=== PATIENT | female | born 1985 | race Caucasian/White ===

== ENCOUNTER 2019-01-03 06:47 | Emergency (ER) | payer OTHER ==
[2019-01-03] MEDS ORDERED: NORMAL SALINE 1000 ML 1,000 ML IV ONE (07:34)
--- NOTE | 2019-01-03 07:35 | ER Document Report ---
ED GI/ - General Chief Complaint: Abdominal Pain Stated Complaint: ABDOMINAL PAIN Time Seen by Provider: 01/03/19 07:33 Primary Care Provider: ROB ALMANZAR MD [ACTIVE STAFF] - Follow up in 3-5 days WILDER ZABALA PA [ALLIED HEALTH PROFESSIONAL] - Follow up as needed Notes: This is a 33-year-old pleasant female to the emergency department chief complaint of abdominal pain for 2 days. Does have some diarrhea. Mild nausea but no vomiting. Pain began around the umbilicus and now radiating to the right lower quadrant. Hurts to move. No fever. TRAVEL OUTSIDE OF THE [place] IN LAST 30 DAYS: No - HPI Patient complains to provider of: Abdominal pain Timing/Duration: Gradual, Worse Quality of pain: Achy Severity at maximum: Moderate Severity in ED: Moderate Pain Level: 3 Location: RLQ - Related Data Allergies/Adverse Reactions: Penicillins Allergy (Verified 05/08/15 08:08) Past Medical History - General Information source: Patient - Social History Smoking Status: Never Smoker Frequency of alcohol use: None Drug Abuse: None Lives with: Spouse/Significant other Family History: Reviewed & Not Pertinent - Medical History Medical History: Negative GI Medical History: Reports: Hx Irritable Bowel Past Surgical History: Reports: Hx Cholecystectomy - 2008 Review of Systems - Review of Systems Notes: Constitutional: denies: Chills, Diaphoresis, Fever, Malaise, Weakness EENT: denies: Eye discharge, Blurred vision, Tearing, Double vision, Nose congestion, Nose discharge, Throat swelling, Mouth pain Cardiovascular: denies: Palpitations, Heart racing, Orthopnea, Dyspnea, Chest p ain Respiratory: denies: Cough, Hurts to breathe, Wheezing, Shortness of breath Gastrointestinal: Complaining of pain in the right lower quadrant and periumbilical region, mild nausea. No vomiting. Positive for diarrhea. Genitourinary: denies: Burning, Dysuria, Discharge, Frequency, Flank pain, Hematuria Musculoskeletal: denies: Joint pain, Joint swelling, Muscle pain, Muscle stiffness, back pain Hematologic/Lymphatic: denies: Anemia, Easy bleeding, Easy bruising, Blood clots Neurological/Psychological: denies: Confusion, Dementia, Depression, Loss of consciousness Skin: No lesions, no masses, no skin breakdown, no abscesses Physical Exam - Vital signs Vitals: Temp Pulse Resp BP Pulse Ox 98.4 F 102 H 16 141/85 H 97 01/03/19 06:48 01/03/19 06:48 01/03/19 06:48 01/03/19 06:48 01/03/19 06:48 Interpretation: Tachycardic - General General appearance: Appears well, Alert - HEENT Head: Normocephalic, Atraumatic Eyes: Normal Pupils: PERRL - Respiratory Respiratory status: No respiratory distress Chest status: Nontender Breath sounds: Normal Chest palpation: Normal - Cardiovascular Rhythm: Tachycardia Heart sounds: Normal auscultation Murmur: No - Abdominal Inspection: Normal Distension: No distension Bowel sounds: Normal Tenderness: Tender, Guarding, Rebound Organomegaly: No organomegaly - Genitourinary External exam: Normal Speculum exam: Normal Vaginal bleeding: None Bimanuel exam: Normal Notes: No tenderness in the right adnexa. Tenderness is in the right lower quadrant but not in the right pelvic area. - Back Back: Normal, Nontender - Extremities General upper extremity: Normal inspection, Nontender, Normal color, Normal ROM, Normal temperature General lower extremity: Normal inspection, Nontender, Normal color, Normal ROM, Normal temperature, Normal weight bearing. No: Dionicio's sign - Neurological Neuro grossly intact: Yes Cognition: Normal Orientation: AAOx4 Christopher Coma Scale Eye Opening: Spontaneous Christopher Coma Scale Verbal: Oriented Christopher Coma Scale Motor: Obeys Commands Dequincy Coma Scale Total: 15 Speech: Normal Motor strength normal: LUE, RUE, LLE, RLE Sensory: Normal - Psychological Associated symptoms: Normal affect, Normal mood - Skin Skin Temperature: Warm Skin Moisture: Dry Skin Color: Normal Course - Re-evaluation Re-evalutation: 01/03/19 13:23 Laboratory 01/03/19 01/03/19 01/03/19 07:39 07:39 07:39 WBC 11.9 H RBC 4.67 Hgb 13.8 Hct 40.9 MCV 88 MCH 29.6 MCHC 33.8 RDW 13.1 Plt Count 242 Seg Neutrophils % 86.3 H Lymphocytes % 9.6 L Monocytes % 3.3 Eosinophils % 0.2 Basophils % 0.6 Absolute Neutrophils 10.2 H Absolute Lymphocytes 1.1 Absolute Monocytes 0.4 Absolute Eosinophils 0.0 Absolute Basophils 0.1 Sodium 139.7 Potassium 4.3 Chloride 104 Carbon Dioxide 25 Anion Gap 11 BUN 11 Creatinine 0.68 Est GFR ( Amer) > 60 Est GFR (Non-Af Amer) > 60 Glucose 125 H Calcium 9.8 Total Bilirubin 0.4 Direct Bilirubin 0.2 Neonat Total Bilirubin Not Reportable Neonat Direct Bilirubin Not Reportable Neonat Indirect Bili Not Reportable AST 20 ALT 30 Alkaline Phosphatase 57 Total Protein 7.7 Albumin 4.3 Lipase 55.8 Urine Color YELLOW Urine Appearance CLEAR Urine pH 6.0 Ur Specific [place] 1.014 Urine Protein NEGATIVE Urine Glucose (UA) NEGATIVE Urine Ketones NEGATIVE Urine Blood NEGATIVE Urine Nitrite NEGATIVE Urine Bilirubin NEGATIVE Urine Urobilinogen NEGATIVE Ur Leukocyte Esterase NEGATIVE Urine WBC (Auto) 1 Urine RBC (Auto) 0 Squamous Epi Cells Auto 2 Urine Mucus (Auto) RARE Urine Ascorbic Acid NEGATIVE Urine HCG, Qual NEGATIVE Abdomen/Pelvis CT 01/03/19 00:00 IMPRESSION: Nonobstructing bilateral renal calculi. There is a 1 mm calcification in the pelvis to right of midline which is probably a phlebolith, however cannot entirely exclude a distal ureteral stone. Correlation with urinalysis recommended. Patient is exquisitely tender right lower quadrant. Her pelvic exam was normal. No significant pathology there. Does have an elevated WBC count. No fever. Symptoms have been present for greater than 24 hours. Even after morphine, fentanyl and Toradol patient has very significant right lower quadrant pain. The CT scan was negative for appendicitis however I am concerned that this could be early appendicitis. I have consulted with the general surgeon, Dr. Almanzar. Awaiting his consult. At this time he asked the patient to remain n.p.o., IV f luids and start her on some antibiotics. I will proceed with his recommendations until he can evaluate the patient. 01/03/19 14:28 Dr. Almanzar has visited with the patient. At this time he recommends continued IV fluids. I antibiotics. He will come back in and reevaluate her in a few more hours. At this time I have signed the patient over to my colleague Dr. Ortiz. Anticipating final disposition by surgeon but more likely will be able to be discharged. - Vital Signs Vital signs: Temp Pulse Resp BP Pulse Ox 98.4 F 102 H 16 141/85 H 97 01/03/19 06:48 01/03/19 06:48 01/03/19 06:48 01/03/19 06:48 01/03/19 06:48 - Laboratory Result Diagrams: 01/03/19 07:39 01/03/19 07:39 Laboratory results interpreted by me: 01/03/19 01/03/19 07:39 07:39 WBC 11.9 H Seg Neutrophils % 86.3 H Lymphocytes % 9.6 L Absolute Neutrophils 10.2 H Glucose 125 H Discharge - Discharge Clinical Impression: Right lower quadrant abdominal pain Condition: Good Disposition: HOME, SELF-CARE Instructions: Observation for Appendicitis ([facility]) Additional Instructions: Follow the recommendations as provided. In the event that your symptoms are getting worse over the next 24 hours then please return for repeat evaluation. Prescriptions: Ciprofloxacin HCl [Cipro 500 mg Tablet] 500 mg PO BID 7 Days #14 tablet Hydrocodone/Acetaminophen [[place] 5-325 mg Tablet] 1 tab PO BID PRN 3 Days #6 tablet PRN Reason: Metronidazole [Flagyl 500 mg Tablet] 500 mg PO Q6H 7 Days #28 tablet Ondansetron [Zofran Odt 4 mg Tablet] 1 - 2 tab PO Q4H PRN #15 tab.rapdis PRN Reason: For Nausea/Vomiting Referrals: WILDER ZABALA PA [ALLIED HEALTH PROFESSIONAL] - Follow up as needed ROB ALMANZAR MD [ACTIVE STAFF] - Follow up in 3-5 days
[2019-01-03 07:55] LABS: ABSOLUTE BASOPHILS # (AUTO) 0.1 10^3/uL (0.0-0.2); ABSOLUTE LYMPHOCYTES (AUTO) 1.1 10^3/uL (0.5-4.7); ABSOLUTE MONOCYTES (AUTO) 0.4 10^3/uL (0.1-1.4); ABSOLUTE NEUT (AUTO) 10.2 10^3/uL (1.7-8.2); BASOPHILS % (AUTO) 0.6 % (0-2); EOSINOPHILS % (AUTO) 0.2 % (0-6); HEMATOCRIT 40.9 % (36.0-47.0); HEMOGLOBIN 13.8 g/dL (12.0-15.5); LYMPHOCYTES % (AUTO) 9.6 % (13-45); MEAN CORPUSCULAR HEMOGLOBIN 29.6 pg (27.0-33.4); MEAN CORPUSCULAR HGB CONC 33.8 g/dL (32.0-36.0); MEAN CORPUSCULAR VOLUME 88 fl (80-97); MONOCYTES % (AUTO) 3.3 % (3-13); PLATELET COUNT 242 10^3/uL (150-450); RED BLOOD COUNT 4.67 10^6/uL (3.72-5.28); RED CELL DISTRIBUTION WIDTH 13.1 % (11.5-14.0); SEGMENTED NEUTROPHILS % (AUTO) 86.3 % (42-78); TOTAL CELLS COUNTED % (AUTO) 100 %; WHITE BLOOD COUNT 11.9 10^3/uL (4.0-10.5)
[2019-01-03 07:57] LABS: APPEARANCE,URINE CLEAR; BILIRUBIN,URINE NEGATIVE (NEGATIVE); COLOR,URINE YELLOW; GLUCOSE, URINE NEGATIVE (NEGATIVE); KETONES,URINE NEGATIVE (NEGATIVE); LEUKOCYTE ESTERASE,URINE NEGATIVE (NEGATIVE); NITRITE,URINE NEGATIVE (NEGATIVE); PROTEIN,URINE NEGATIVE (NEGATIVE); URINE SPECIFIC GRAVITY 1.014; UROBILINOGEN,URINE NEGATIVE mg/dL (<2.0)
[2019-01-03] MEDS ORDERED: FENTANYL CITRATE INJ/PF 100 MCG/2 ML AMPUL IV ONE (08:11)
[2019-01-03 08:16] LABS: ALANINE AMINOTRANSFERASE 30 U/L (9-52); ALBUMIN 4.3 g/dL (3.5-5.0); ALKALINE PHOSPHATASE 57 U/L (38-126); ANION GAP 11 (5-19); ASPARTATE AMINO TRANSFERASE 20 U/L (14-36); BILIRUBIN,DIRECT 0.2 mg/dL (0.0-0.4); BILIRUBIN,TOTAL 0.4 mg/dL (0.2-1.3); BLOOD UREA NITROGEN 11 mg/dL (7-20); CALCIUM 9.8 mg/dL (8.4-10.2); CARBON DIOXIDE 25 mmol/L (22-30); CHLORIDE 104 mmol/L (98-107); GLUCOSE 125 mg/dL (75-110); LIPASE 55.8 U/L (23-300); POTASSIUM 4.3 mmol/L (3.6-5.0); SODIUM 139.7 mmol/L (137-145); TOTAL PROTEIN 7.7 g/dL (6.3-8.2)
[2019-01-03] MEDS ORDERED: ONDANSETRON HCL INJ/PF 4 MG/2 ML SDV IV ONE ×2 (09:53→14:28)
[2019-01-03] MEDS ORDERED: MORPHINE SULFATE 10 MG/ML INJ IV ONE ×2 (10:41→14:28)
--- NOTE | 2019-01-03 11:43 | RADIOLOGY REPORT (SQ) ---
EXAM DESCRIPTION: CT ABD/PELVIS WITH IV ORAL COMPLETED DATE/TIME: 01/03/2019 11:15 am REASON FOR STUDY: rlq pain COMPARISON: None. TECHNIQUE: CT scan of the abdomen and pelvis performed with intravenous and oral contrast using bryant julien scanning technique with dynamic intravenous contrast injection. Images reviewed with lung, soft t issue, and bone windows. Reconstructed coronal and sagittal MPR images reviewed. Delayed images for e valuation of the urinary system also acquired. All images stored on PACS. All CT scanners at this facility use dose modulation, iterative reconstruction, and/or weight based d osing when appropriate to reduce radiation dose to as low as reasonably achievable (ALARA). [facility]: Dose Right [facility]: CareDose [facility]: Dose Right [facility]: Teradose 4D [facility]: Stockpulse CONTRAST TYPE AND DOSE: contrast/concentration: Isovue 350.00 mg/ml; Total Contrast Delivered: 100.0 ml; Total Saline Delivered: 68.0 ml RENAL FUNCTION: GFR > 60. RADIATION DOSE: CT Rad equipment meets quality standard of care and radiation dose reduction techniq ues were employed. CTDIvol: 13.7 - 17.8 mGy. DLP: 1877 mGy-cm. . LIMITATIONS: None. FINDINGS: LOWER CHEST: Breast implants. LIVER: Normal size. Fatty liver. No masses. No dilated ducts. SPLEEN: Normal size. No focal lesions. PANCREAS: No masses. No significant calcifications. No adjacent inflammation or peripancreatic fluid collections. Pancreatic duct not dilated. GALLBLADDER: Surgically absent. ADRENAL GLANDS: No significant masses or asymmetry. RIGHT KIDNEY AND URETER: No solid masses. 2 mm lower pole renal calculi. Punctate calcification ri ght of midline image 86 probably a phlebolith. No hydronephrosis or hydroureter. LEFT KIDNEY AND URETER: No solid masses. Renal calculi measuring up to 2 mm. No hydronephrosis or hydroureter. AORTA AND VESSELS: No aneurysm. No dissection. Renal arteries, SMA, celiac without stenosis. RETROPERITONEUM: No retroperitoneal adenopathy, hemorrhage or masses. BOWEL AND PERITONEAL CAVITY: No obstruction. No visualized masses. No free fluid. No inflammatory ch anges or thickening of bowel wall. APPENDIX: Normal. PELVIS: No significant masses. Normal bladder. No free fluid. ABDOMINAL WALL: No masses. No hernias. BONES: No significant or acute findings. OTHER: No other significant finding. IMPRESSION: Nonobstructing bilateral renal calculi. There is a 1 mm calcification in the pelvis to right of midline which is probably a phlebolith, however cannot entirely exclude a distal ureteral st one. Correlation with urinalysis recommended. TECHNICAL DOCUMENTATION: JOB ID: [id number] Quality ID # [id number]: Final reports with documentation of one or more dose reduction techniques (e.g., Au tomated exposure control, adjustment of the mA and/or kV according to patient size, use of iterative reconstruction technique) 2010 [employer] All Rights Reserved Reading location - IP/workstation name: [email or web address]
[2019-01-03] MEDS ORDERED: KETOROLAC TROMETHAMINE INJ/PF 30 MG/1 ML SDV IV ONE (11:46)
[2019-01-03] MEDS ORDERED: DEXTROSE 5%-1/2 NORMAL SALINE 1,000 ML IV ONE (13:25)
[2019-01-03] MEDS ORDERED: METRONIDAZOLE 500 MG/NS RTU 500 MG/100 ML RTUPB IV ONE (13:25)
[2019-01-03] MEDS ORDERED: CIPROFLOXACIN 400 MG/D5W RTU 400 MG/200 ML RTUPB IV ONE (13:26)
[2019-01-03 14:28] LABS: T.VAGINALIS (WET MOUNT) NO TRICHOMONAS SEEN
[2019-01-03 14:29] LABS: BACTERIA (WET MOUNT) 3+ BACTERIA SEEN; RBCS (WET MOUNT) 1+ RBCS SEEN; WBCS (WET MOUNT) 2+ WBCS SEEN; YEAST (WET MOUNT) NO YEAST SEEN
[2019-01-03 15:06] LABS: CHLAM PCR NOT DETECTED (NOT DETECT); GON PCR NOT DETECTED (NOT DETECT)
--- NOTE | 2019-01-03 15:55 | PDOC CONSULTATION ---
Consultation Consult Date: 01/03/19 Attending physician:: NGUYỄN MOREAU Provider Consulted: ROB GARCIA Consult reason:: Abdominal pain History of Present Illness Admission Date/PCP: JAVIER QUINTERO History of Present Illness: RADHA DUMONT is a 33 year old female Presents emergency department via ground rescue complaining of a 2-day history of abdominal pain. Was then precipitated. It was primarily epigastric area associated with some nausea no vomiting but several episodes of diarrhea. She denies contact with anyone with gastroenteritis. Patient has a remote history of GERD, and irritable bowel syndrome, but current symptoms are different, more intense. Patient was seen in the emergency department where she is found to have from leukocytosis, and CT with oral and IV contrast showing essentially unremarkable findings; the appendix was visualized, with contrast, and felt to be within normal limits. Surgery was consulted because of persisting abdominal pain, and the need for IV pain medication. Past Medical History Past Medical History: GERD, irritable bowel syndrome Past Surgical History Past Surgical History: Cholecystectomy, and implant surgery. Past Surgical History: Reports: Cholecystectomy - 2008 Social History Lives with: Family, Spouse/Significant other Smoking Status: Never Smoker Frequency of Alcohol Use: None Hx Recreational Drug Use: No Hx Prescription Drug Abuse: No Family History Family History: None, Reviewed & Not Pertinent Parental Family History Reviewed: Yes Children Family History Reviewed: Yes Sibling(s) Family History Reviewed.: Yes Medication/Allergy Home Medications: Dicyclomine HCl [Bentyl 20 mg Tablet] 20 mg PO QID #40 tablet 05/08/15 Hydrocodone Bit/Acetaminophen [Hydrocodon-Acetaminophen 5-325] 1 each PO Q6 #30 tablet 05/08/15 Ondansetron [Zofran Odt 4 mg Tablet] 1 - 2 tab PO Q4H PRN #30 tab.rapdis 05/08/15 Ciprofloxacin HCl [Cipro 500 mg Tablet] 500 mg PO BID 7 Days #14 tablet 01/03/19 Hydrocodone/Acetaminophen [[place] 5-325 mg Tablet] 1 tab PO BID PRN 3 Days #6 tablet 01/03/19 Metronidazole [Flagyl 500 mg Tablet] 500 mg PO Q6H 7 Days #28 tablet 01/03/19 Ondansetron [Zofran Odt 4 mg Tablet] 1 - 2 tab PO Q4H PRN #15 tab.rapdis 01/03/19 Allergies/Adverse Reactions: Penicillins Allergy (Verified 05/08/15 08:08) Physical Exam Vital Signs: Temp Pulse Resp BP Pulse Ox 98.4 F 102 H 16 141/85 H 97 01/03/19 06:48 01/03/19 06:48 01/03/19 06:48 01/03/19 06:48 01/03/19 06:48 Intake & Output 01/02/19 01/03/19 01/04/19 06:59 06:59 06:59 Intake Total 1000 Balance 1000 Weight 98 kg General appearance: PRESENT: mild distress Head exam: PRESENT: normocephalic Eye exam: PRESENT: EOMI Ear exam: PRESENT: normal external ear exam Mouth exam: PRESENT: dry mucosa Neck exam: PRESENT: full ROM Respiratory exam: PRESENT: clear to auscultation vianney Cardiovascular exam: PRESENT: RRR Pulses: PRESENT: normal carotid pulses, normal radial pulses GI/Abdominal exam: PRESENT: other - Tender right lower quadrant without rigidity or true peritoneal signs. Rectal exam: PRESENT: deferred Extremities exam: PRESENT: full ROM Musculoskeletal exam: PRESENT: full ROM Neurological exam: PRESENT: oriented to person, oriented to place, oriented to time, oriented to situation Psychiatric exam: PRESENT: appropriate affect Skin exam: PRESENT: dry Results Laboratory Results: 01/03/19 07:39 01/03/19 07:39 01/03/19 01/03/19 01/03/19 07:39 07:39 07:39 WBC 11.9 H RBC 4.67 Hgb 13.8 Hct 40.9 MCV 88 MCH 29.6 MCHC 33.8 RDW 13.1 Plt Count 242 Seg Neutrophils % 86.3 H Lymphocytes % 9.6 L Monocytes % 3.3 Eosinophils % 0.2 Basophils % 0.6 Absolute Neutrophils 10.2 H Absolute Lymphocytes 1.1 Absolute Monocytes 0.4 Absolute Eosinophils 0.0 Absolute Basophils 0.1 Sodium 139.7 Potassium 4.3 Chloride 104 Carbon Dioxide 25 Anion Gap 11 BUN 11 Creatinine 0.68 Est GFR ( Amer) > 60 Est GFR (Non-Af Amer) > 60 Glucose 125 H Calcium 9.8 Total Bilirubin 0.4 AST 20 ALT 30 Alkaline Phosphatase 57 Total Protein 7.7 Albumin 4.3 Lipase 55.8 Urine Color YELLOW Urine Appearance CLEAR Urine pH 6.0 Ur Specific [place] 1.014 Urine Protein NEGATIVE Urine Glucose (UA) NEGATIVE Urine Ketones NEGATIVE Urine Blood NEGATIVE Urine Nitrite NEGATIVE Ur Leukocyte Esterase NEGATIVE Urine WBC (Auto) 1 Urine RBC (Auto) 0 Impressions: Abdomen/Pelvis CT 01/03/19 00:00 IMPRESSION: Nonobstructing bilateral renal calculi. There is a 1 mm ca lcification in the pelvis to right of midline which is probably a phlebolith, however cannot entirely exclude a distal ureteral stone. Correlation with urinalysis recommended. Assessment & Plan - Diagnosis (1) Right lower quadrant abdominal pain Is this a current diagnosis for this admission?: Yes Plan: Impression: Right lower quadrant pain and tenderness; exact etiology; patient does not have an acute abdomen and does not require emergent exploration Recommendations: 1. Explained the above to patient and her significant other. I explained the CT scan findings; this was performed with IV and oral contrast, with good resolution. My recommendation is for no surgery at this moment. 2. Multiple possible etiologies including mesenteric adenitis, constipation, early appendicitis, tubo-ovarian problem are all considerations. At this point I would recommend nonoperative management, continue IV fluids; recommend holding off on additional pain medication. 3. The above was discussed with patient, as well as Dr. Moreau, emergency room physician. If patient improves clinically, she can be discharged home; conversely if her symptoms worsen, than admission will be recommended. - Time Time Spent: 30 to 50 Minutes Smoking Cessation Education: over 10 minutes Medications reviewed and adjusted accordingly: Yes Anticipated discharge: Home
--- NOTE | 2019-01-03 17:48 | ER Document Report ---
Doctor's Note Notes: 01/03/19 17:46 Care of this patient was turned over to me, awaiting final disposition. Dr. Almanzar felt comfortable with the patient being discharged if she had improvement. I went to evaluate the patient. She states she is really not having any further pain. Her abdominal exam is entirely nontender. She feels comfortable with being discharged. I explained to the patient that any change in her symptoms back towards the worse, or any new symptoms should prompt her return. She voiced understanding and was discharged.
[2019-01-03 18:28] VITALS: BP 133/82
== END 2019-01-03 18:26 | disposition home or self-care (01) ==
LOC: ER 06:47
DX: R10.31 Right lower quadrant pain (principal); R19.7 Diarrhea, unspecified; R11.0 Nausea; R10.33 Periumbilical pain; R10.9 Unspecified abdominal pain
CPT/HCPCS: 36415; 87210; 83690; 85025; 81025; 80053; 81001; 87491; 87591; 74177; J3010; J1885; J3490; J2270; J2405; J7030; J0744